=== PATIENT | female | born 1945 | race Caucasian/White ===

== ENCOUNTER 2017-03-02 20:43 | Emergency (ER) | payer MEDICARE ==
[2017-03-02 21:00] VITALS: TEMP 97
[2017-03-02 21:51] VITALS: O2SAT 98
--- NOTE | 2017-03-02 22:03 | ED.PDOC ---
History of Present Illness - General Chief Complaint: Bite: Animal/Insect/Human Stated Complaint: poss snake bite Time Seen by Provider: 03/02/17 20:47 Source: patient Exam Limitations: no limitations - History of Present Illness Initial Comments: the patient is a 71-year-old female presenting to the emergency room secondary to this to concern for a snake bite to the medial posterior aspect of her right ankle. She was walking and high weeds when she felt a sharp prick to her ankle. She looked down and saw a couple of small punctate when he scratches on her ankle that were less than an inch apart. She did not see any snake. She was concerned that one had bitten her in the high weeds that she could not see. This occurred approximately 30 minutes prior to arrival. She is not having any shortness of breath or back pain. No palpitations. She is having minimal discomfort at the site. No other injuries. Timing/Duration: 1 hour Severity: mild Improving Factors: nothing Worsening Factors: nothing Associated Symptoms: denies symptoms Allergies/Adverse Reactions: Allergies NO KNOWN ALLERGY Allergy (Verified 03/02/17 20:55) Home Medications: Ambulatory Orders Levothyroxine Sodium [Synthroid] 150 mcg PO BID 03/02/17 Review of Systems - Review of Systems Constitutional: States: no symptoms reported EENTM: States: no symptoms reported Respiratory: States: no symptoms reported Cardiology: States: no symptoms reported Gastrointestinal/Abdominal: States: no symptoms reported Genitourinary: States: no symptoms reported Musculoskeletal: States: no symptoms reported Skin: States: see HPI Neurological: States: no symptoms reported Endocrine: States: no symptoms reported All other Systems: No Change from Baseline Past Medical History (General) - Patient Medical History Hx Asthma: No Hx of COPD: No Hx Congestive Heart Failure: No Hx Hypertension: No Hx Thyroid Disease: Yes Hx Diabetes: No Hx Cancer: No - Vaccination History Hx Tetanus, Diphtheria Vaccination: No Hx Influenza Vaccination: No Hx Pneumococcal Vaccination: No Immunizations Up to Date: No - Social History Hx Alcohol Use: No Hx Substance Use Treatment: No Hx Depression: No - Female History Patient is a Female of Child Bearing Age (10 -59 yrs old): No Family Medical History - Family History Mother Family History: Unknown Living Status: Physical Exam - Physical Exam General Appearance: Alert, Comfortable, No apparent distress Eye Exam: bilateral normal Ears, Nose, Throat: hearing grossly normal, normal ENT inspection, normal pharynx Neck: non-tender, full range of motion, supple Respiratory: chest non-tender, lungs clear, normal breath sounds, no respiratory distress, no accessory muscle use Cardiovascular/Chest: normal peripheral pulses, regular rate, rhythm, no edema Peripheral Pulses: radial,right: 2+, radial,left: 2+, dorsalis pedis,right: 2+, dorsalis pedis,left: 2+, posterior tibialis,right: 2+, posterior tibialis,left: 2+ Rectal Exam: deferred Extremity: normal range of motion, non-tender, no pedal edema, no calf tenderness Neurologic: alert, normal mood/affect, oriented x 3 Skin Exam: normal color Comments: Vital Signs - 24 hr 03/02/17 03/02/17 20:56 21:50 Temperature 97 F L Pulse Rate [ 110 H 90 monitor] Respiratory 18 18 Rate Blood Pressure 148/70 120/63 [Right Arm] O2 Sat by Pulse 96 98 Oximetry Progress - Progress Progress: 03/02/17 22:03 patient is a 71-year-old female presenting to the emergency room secondary to concern for a possible snake bite to her right inner ankle. The patient has been monitored for more than an hour and a half and more than 2 hours since the incident. There is no significant swelling. There is no increase in pain. She is not having any systemic symptoms. if this is a snake bite then it appears to be a dry snakebite. The wound was cleaned with alcohol swabs. The patient can return to the emergency room for any worsening. No antibiotics are warranted at this time. Departure - Departure Clinical Impression: Abrasion of ankle Qualifiers: Encounter type: initial encounter Laterality: right Qualified Code(s): S90.511A - Abrasion, right ankle, initial encounter Disposition: Discharge to Home or Self Care Condition: Fair Departure Forms: ED Discharge - Pt. Copy, Patient Portal Self Enrollment Instructions: DI for Abrasion Diet: regular diet Activity: increase activity as tolerated Referrals: [facility] [Primary Care Provider] - 1-2 Weeks Home Medications: Ambulatory Orders Levothyroxine Sodium [Synthroid] 150 mcg PO BID 03/02/17 Additional Instructions: patient is a 71-year-old female presenting to the emergency room secondary to concern for a possible snake bite to her right inner ankle. The patient has been monitored for more than an hour and a half and more than 2 hours since the incident. There is no significant swelling. There is no increase in pain. She is not having any systemic symptoms. if this is a snake bite then it appears to be a dry snakebite. The wound was cleaned with alcohol swabs. The patient can return to the emergency room for any worsening. No antibiotics are warranted at this time.
[2017-03-02 22:13] VITALS: BP 122/52
== END 2017-03-02 22:12 | disposition home or self-care (01) ==
LOC: ER 20:43
DX: S90.511A Abrasion, right ankle, initial encounter (principal); E07.9 Disorder of thyroid, unspecified; X58.XXXA Exposure to other specified factors, initial encounter

== ENCOUNTER → 2017-12-11 | Outpatient (CLI) | payer MEDICARE ==
--- NOTE | 2017-12-13 08:58 | RAD ---
EXAM DESCRIPTION: XR CHEST 2 VIEWS CLINICAL HISTORY: HYPOXEMIA COMPARISON: 11/21/2011 TECHNIQUE: PA/lateral FINDINGS: Heart size top limits normal. Mildly prominent main pulmonary arteries. Lungs are hyperinflated consistent with COPD with mildly coarsened interstitial markings. Biapical pleural thickening. No alveolar consolidation or pleural effusions. Minimal peribronchial thickening Osteopenia. Anterior wedge compression deformity of T7, age indeterminate IMPRESSION: Chronic interstitial change and hyperinflation consistent with COPD. Minimal peribronchial thickening. An acute component of interstitial lung disease is not excluded Electronically signed by: Larry Mckeon MD 12/13/2017 8:58 AM [facility]
== END ==
LOC: LAB.O 11:59
PROVIDERS: ATTEND Nurse Practitioner Family
DX: J18.9 Pneumonia, unspecified organism (principal); R09.02 Hypoxemia; E86.0 Dehydration

== ENCOUNTER 2020-08-09 05:12 | Day surgery (SDC) | payer MEDICARE ==
[2020-08-09] MEDS ORDERED: PROPARACAINE 0.5% OPHTH SOL 15 ML BTTL LEFT_EYE ONE ×2 (08:02→08:17)
[2020-08-09] MEDS ORDERED: LIDOCAINE 1% 2 ML VIAL INJ ONE ×2 (08:02→08:17)
[2020-08-09] MEDS ORDERED: BRIMONIDINE 0.2% OPHTH DROPS LEFT_EYE ONE ×2 (08:03→08:17)
[2020-08-09] MEDS ORDERED: TOBRAMYCIN SULF 0.3 % OPHT SOL 1 DROP LEFT_EYE ONE ×2 (08:03→08:17)
[2020-08-09] MEDS ORDERED: DEXAMETHASONE 0.1% OPHTH SOL 1 DROP LEFT_EYE ONE ×2 (08:03→08:17)
[2020-08-09] MEDS ORDERED: MOXIFLOXACIN HCL (OPHTH) 1 DROP DROPS LEFT_EYE ONE ×2 (08:03→08:17)
[2020-08-09] MEDS ORDERED: MIDAZOLAM INJ 2 MG/2 ML VIAL ONE (08:16)
== END 2020-08-09 09:25 | disposition home or self-care (01) ==
LOC: AMB 05:12
PROVIDERS: ATTEND Ophthalmology
DX: H25.12 Age-related nuclear cataract, left eye (principal); Z79.899 Other long term (current) drug therapy
CPT/HCPCS: 00142; 66984; J2250

== ENCOUNTER 2020-08-23 05:15 | Day surgery (SDC) | payer MEDICARE ==
[2020-08-23] MEDS ORDERED: TROP1%/CYCLOPEN 1%/PHENYL 2.5% DROPS OPHTH ONE (05:16)
[2020-08-23] MEDS ORDERED: MOXIFLOXACIN HCL (OPHTH) 1 DROP DROPS RIGHT_EYE ONE (07:50)
[2020-08-23] MEDS ORDERED: TOBRAMYCIN SULF 0.3 % OPHT SOL 1 DROP RIGHT_EYE ONE (07:50)
[2020-08-23] MEDS ORDERED: DEXAMETHASONE 0.1% OPHTH SOL 1 DROP RIGHT_EYE ONE (07:50)
[2020-08-23] MEDS ORDERED: MIDAZOLAM INJ 2 MG/2 ML VIAL ONE (07:50)
[2020-08-23] MEDS ORDERED: PROPARACAINE 0.5% OPHTH SOL 15 ML BTTL RIGHT_EYE ONE (07:50)
[2020-08-23] MEDS ORDERED: LIDOCAINE 1% 2 ML VIAL INJ ONE (07:50)
[2020-08-23] MEDS ORDERED: BRIMONIDINE 0.2% OPHTH DROPS RIGHT_EYE ONE (07:50)
== END 2020-08-23 08:46 | disposition home or self-care (01) ==
LOC: AMB 05:15
PROVIDERS: ATTEND Ophthalmology
DX: H25.11 Age-related nuclear cataract, right eye (principal); Z79.899 Other long term (current) drug therapy
CPT/HCPCS: 00142; 66984; J2250